=== PATIENT | female | born 1970 | race Caucasian/White ===

== ENCOUNTER 2018-05-26 08:00 | Inpatient (IN) ==
[2018-07-07] MEDS ORDERED: Chlorhexidine Gluconate 2% 1 Pack (2 Cloths) TOPICAL ONE (06:46)
[2018-07-07] MEDS ORDERED: Metoprolol Tartrate 25 MG Tablet PO ONE (06:46)
[2018-07-07] MEDS ORDERED: Sodium Chlor 0.9% Inj 500 ML IV.SIG SCH (07:00)
[2018-07-07] MEDS ORDERED: ceFAZolin 2 GM Premix Inj 2 GM/50 ML PIGGYBACK IV.SIG PRN (07:00)
[2018-07-07] MEDS ORDERED: Microfibrillar Collagen Hemostat 1 GM Packet TOPICAL ONE (07:10)
[2018-07-07] MEDS ORDERED: fentaNYL Citrate Inj 250 MCG/5 ML Ampul ONE (07:34)
[2018-07-07] MEDS ORDERED: Famotidine PF Inj 20 MG/2 ML Vial ONE (07:47)
[2018-07-07] MEDS ORDERED: Zolpidem Tartrate 5 MG Tablet PO PRN (10:26)
[2018-07-07] MEDS ORDERED: Naloxone Inj 0.4 MG/ML Vial IV.PUSH PRN (10:26)
--- NOTE | 2018-07-07 10:35 | P.PCNOB ---
Pre-Op/Post-Op Diagnoses Operation Date: 07/07/18 08:00 Menorrhagia Fibroid uterus Procedure: Procedures Operation Date: 07/07/18 08:00 Actual Procedures Side Surgeon p EXAM UNDER ANESTHESIA, TOTAL ABDOMINAL HYSTERECTOMY, BILATERAL SALPINGECTOMY Bilateral Radha De La Cruz MD Automatic Buffing Wheel Former: Isela Tadeo Estimated blood loss (ml): 300 Anesthesia type: General Complications: none Fluids: crystalloid Fluid amount (mL): 1,600 Urine output (mL): 250 Specimen: uterus, other (cervix, bilateral fallopian tubes) Findings: Markedly enlarged uterus approx 14 cm in size, globular with adenomyosis appearance and a large fibroid deep in myometrium (8cm on u/s). bilateral ovaries and tubes wnl Disposition: PACU
[2018-07-07] MEDS ORDERED: *Meperidine Inj 25 MG/ML Vial PERIprocedural Use ONLY ONE (10:51)
[2018-07-07] MEDS ORDERED: Morphine Inj 4 MG/ML Vial IV.SIG ONE (11:00)
[2018-07-07] MEDS: Morphine Inj 30 MG/30 ML PCA.VIAL PCA PRN ×2 (11:13→17:37)
[2018-07-07] MEDS ORDERED: *morphine SULFATE 4 MG/ML PERIprocedure ONLY ONE (11:21)
[2018-07-07] MEDS: Docusate Sodium 100 MG Capsule PO SCH (22:47)
[2018-07-08 04:33] LABS: Baso # (Auto) 0.1 th/mm3 (0.0-0.2); Baso % (Auto) 0.6 % (0.0-2.0); Eos % (Auto) 0.5 % (0.0-4.0); Hematocrit 32.8 % (35.0-46.0); Hemoglobin 10.9 gm/dL (11.6-15.3); Lymph # (Auto) 1.4 th/mm3 (1.0-4.8); Mean Corpuscular HGB Conc 33.2 % (32.0-36.0); Mean Corpuscular Hemoglobin 28.7 pg (27.0-34.0); Mean Corpuscular Volume 86.6 fL (80.0-100.0); Mean Platelet Volume 7.4 fL (7.0-11.0); Mono % (Auto) 10.3 % (0.0-8.0); Neut # (Auto) 7.5 th/mm3 (1.8-7.7); Neut % (Auto) 74.6 % (16.0-70.0); Platelet Count 231 th/mm3 (150-450); Red Blood Count 3.79 mil/mm3 (4.00-5.30); Red Cell Distribution Width 13.5 % (11.6-17.2); White Blood Count 10.1 th/mm3 (4.0-11.0)
[2018-07-08] MEDS: Ibuprofen 600 MG Tablet PO PRN ×2 (07:44→15:46)
--- NOTE | 2018-07-08 08:47 | P.PNOB ---
Subjective Post op day: 1 Interval history: Pain well controlled. Ambulating, fatou po. Still has not voided. Comfortable overnight with gas tender. Objective Vital Signs/I&O: Vital Signs 07/07/18 10:48 07/07/18 11:00 07/07/18 11:15 Temperature 97.8 F Pulse Rate 108 H 88 70 Respiratory Rate 14 13 13 Blood Pressure 114/60 115/56 L 110/56 L Pulse Oximetry 99 100 100 07/07/18 11:30 07/07/18 11:43 07/07/18 11:45 Temperature 98.5 F Pulse Rate 76 80 Respiratory Rate 18 14 18 Blood Pressure 107/55 L 108/58 L Pulse Oximetry 99 99 07/07/18 12:16 07/07/18 16:23 07/07/18 20:07 Temperature 98.6 F 98.5 F 98.1 F Pulse Rate 83 86 74 Respiratory Rate 18 16 Blood Pressure 101/66 88/54 L 73/46 L Pulse Oximetry 96 07/07/18 23:55 07/08/18 00:00 07/08/18 03:53 Temperature 98.6 F 98.8 F Pulse Rate 79 70 Respiratory Rate 16 16 18 Blood Pressure 81/60 L 76/53 L Pulse Oximetry 96 94 L 07/08/18 04:00 Temperature Pulse Rate Respiratory Rate 16 Blood Pressure Pulse Oximetry Intake & Output 07/07/18 07/08/18 07/08/18 18:59 06:59 18:59 Intake Total 1715 / 1715 2405 / 2405 Output Total 1050 / 1050 790 / 790 Balance 665 / 665 1615 / 1615 Weight 69.6 kg Intake: IV 115 / 115 1785 / 1785 LR 1000 mL Inj 1,000 ML @ 125 65 / 65 1785 / 1785 mls/hr IV.CONT .Q8H [facility] Rx#: [id number] Ancef 2 GM Premix Inj 2 gm In 50 / 50 50 ml @ 100 mls/hr IV.SIG RV REPAIRER PRN Rx#:[id number] Oral 620 / 620 Pre-hospital ED Only 1600 / 1600 Output: Urine 500 / 500 Estimated Blood Loss 300 / 300 Urine Amount (Catheter) 250 / 250 790 / 790 Indwelling Urethral Catheter 250 / 250 790 / 790 Other: Weight On Admission 69.6 kg Result Diagrams: 07/08/18 04:27 Objective Remarks: GENERAL: Well-nourished, well-developed patient. CARDIOVASCULAR: Regular rate and rhythm without murmurs, gallops, or rubs. RESPIRATORY: Breath sounds equal bilaterally. No accessory muscle use. ABDOMEN/GI: Abdomen soft, non-tender, bowel sounds present. Incision: Clean, dry and intact. GENITOURINARY: Light to moderate bleeding. EXTREMITIES: No cyanosis or edema, non-tender, without signs of DVT. Medications and IVs: Active Medications Diphenhydramine HCl (Benadryl) 25 mg PO Q6H PRN PRN Reason: ITCHING Last Admin: 07/07/18 20:11 Dose: 25 mg Docusate Sodium (Colace) 100 mg PO BID [facility] Last Admin: 07/07/18 22:47 Dose: Not Given Cefazolin Sodium/Dextrose (Ancef 2 Gm Premix Inj) 2 gm in 50 mls @ 100 mls/hr IV.SIG RV REPAIRER PRN PRN Reason: SEE LABEL COMMENTS Stop: 07/11/18 06:59 Last Infusion: 07/07/18 08:50 Dose: Infused Lactated Ringer's (Lr 1000 Ml Inj) 1,000 mls @ 125 mls/hr IV.CONT .Q8H [facility] Last Admin: 07/08/18 01:02 Dose: 125 mls/hr Ibuprofen (Motrin) 600 mg PO Q6H PRN PRN Reason: Fever >101 F Last Admin: 07/08/18 07:44 Dose: 600 mg Miscellaneous Information (Mis Nursing Information) 0 each OTHER UNSCH PRN PRN Reason: SEE LABEL COMMENTS Stop: 07/08/18 10:52 Ondansetron HCl (Zofran Inj) 4 mg IV.PUSH Q6H PRN PRN Reason: NAUSEA OR VOMITING Oxycodone/Acetaminophen (Percocet 5/325 Mg) 1 tab PO Q4H PRN PRN Reason: PAIN SCALE 1 TO 5 Oxycodone/Acetaminophen (Percocet 5/325 Mg) 2 tab PO Q4H PRN PRN Reason: PAIN SCALE 6 TO 10 Last Admin: 07/08/18 07:44 Dose: 2 tab Sodium Chloride (Ns Flush) 2 ml IV.FLUSH BID [facility] Last Admin: 07/07/18 22:47 Dose: Not Given Sodium Chloride (Ns Flush) 2 ml IV.FLUSH UNSCH PRN PRN Reason: FLUSH AFTER USING IV ACCESS Zolpidem Tartrate (Ambien) 5 mg PO HS PRN PRN Reason: INSOMNIA Assessment and Plan - Diagnosis (1) S/P BALJIT (total abdominal hysterectomy) Code(s): Z90.710 - Acquired absence of both cervix and uterus Status: Acute - Plan POD 1 -doing well. Onc ept has voided and we ensure pain is well controlled on po meds, can be d/c home. Reviewed postop care. Has rx at home. dispo home later today.
[2018-07-08] MEDS: Docusate Sodium 100 MG Capsule PO SCH (09:17)
== END 2018-07-08 16:05 | disposition home or self-care (01) | DRG 743 ==
LOC: HSDI 07-07 06:05 → H1EA 07-07 11:50
PROVIDERS: ADMIT Obstetrics & Gynecology; ATTEND Obstetrics & Gynecology
CPT/HCPCS: 85025; 86850; 86900; 86901; 88307; 94150; J0131; J0690; J2175; J2270; J3010; J7120; J8501